=== PATIENT | female | born 2000 | race Caucasian/White ===

== ENCOUNTER 2021-10-23 00:54 | Emergency (ER) | payer OTHER ==
[~2021-10-23] VITALS: Ht 165.1 cm; Wt 81.6 kg
[2021-10-23] MEDS ORDERED: predniSONE 20 MG TABLET ONE (01:23)
[2021-10-23] MEDS ORDERED: FAMOTIDINE (20 MG) 20 MG TABLET ONE (01:23)
[2021-10-23] MEDS ORDERED: ONDANSETRON 4 MG TAB.RAPDIS ONE (01:23)
[2021-10-23] MEDS ORDERED: ONDANSETRON 4 MG TAB.RAPDIS SL ONE (01:30)
[2021-10-23] MEDS ORDERED: predniSONE 50 MG TABLET PO ONE (01:30)
[2021-10-23] MEDS ORDERED: FAMOTIDINE (20 MG) 20 MG TABLET PO ONE (01:30)
[2021-10-23] MEDS ORDERED: PRED50TA PO (01:32)
[2021-10-23] MEDS ORDERED: EPIN0.3P3 IM (01:32)
[2021-10-23 01:58] VITALS: BP 131/78
--- NOTE | 2021-10-23 01:58 | NUR ---
Patient discharged to home in stable condition. Written and verbal after care instructions given. Patient verbalizes understanding of instruction. RX GIVEN
== END 2021-10-23 01:58 | disposition home or self-care (01) ==
LOC: ER 00:57
DX: T78.1XXA Other adverse food reactions, not elsewhere classified, initial encounter (principal); R11.0 Nausea; L29.9 Pruritus, unspecified; Z79.899 Other long term (current) drug therapy; X58.XXXA Exposure to other specified factors, initial encounter
CPT/HCPCS: 99284; J7512; Q0162